=== PATIENT | male | born 1955 | race African-American/Black ===

== ENCOUNTER → 2018-04-02 13:23 | Outpatient (CLI) | payer OTHER, SELFPAY ==
[2018-04-02 16:00] LABS: PSA,Total - Annual Screen 2.53 ng/mL (0.00-4.00)
== END ==
PROVIDERS: Family Provider Family Medicine; PCP Family Medicine; Visit Provider Family Medicine
DX: Z12.5 Encounter for screening for malignant neoplasm of prostate (principal)
CPT/HCPCS: 36415; 84153; G0103

== ENCOUNTER 2018-08-15 18:43 | Emergency (ER) | payer OTHER, SELFPAY ==
[2018-08-15 18:44] VITALS: BP 132/81; PULSE 125; RESP 16; TEMP 36.6; O2SAT 97; BMI 32.8
[2018-08-15 19:47] LABS: Bacteria 0 SEEN /hpf (None Seen); Mucous, Urine 0 SEEN /hpf (<or=2+); Squamous Epithelial Cells - UA 0 SEEN /hpf (0-5); White Blood Cells 0 SEEN /hpf (0-5)
[2018-08-15 19:49] LABS: Color, Urine Yellow (Yellow); Glucose, Dipstick Normal (Normal); Ketone-Dipstick 5 mg/dl (Negative); Leukocyte Esterase-Dipstick 25 /ul (Negative); Nitrite-Dipstick Negative (Negative); Occult Blood-Urine 150 /ul (Negative); Protein-Dipstick Negative (Negative); Urine Bilirubin Dipstick Negative (Negative); Urine Clarity Clear (Clear); Urine Urobilinogen Normal (Normal)
[2018-08-15 19:57] LABS: Red Blood Cells-Urine 0-5 SEEN /hpf (0-5)
--- NOTE | 2018-08-15 20:30 | ED.VISSUMM ---
- ER Visit Summary Date of Service: 08/15/18 Chief Complaint: Urinary retention History of Present Illness: The patient is a 63 M who presents with urinary retention symptoms he has been on and off for a few days got worse today has quite a bit of suprapubic pain. No fever chills. No known BPH symptoms no prior events. Physical Examination: Otherwise normal exam she he has some suprapubic pain, slightly distended bladder. Normal external genitalia. Emergency Department Course and Treatment: A Lucas catheter was inserted, patient had significant relief. Urinalysis is unremarkable he had seen in urgent care earlier and was placed on antibiotics I told him to finish them. Discharge stable condition Impression: Urinary retention This note was generated with [employer] dictation software. It may contain incorrect words, spelling, and punctuation that were not noted in review of the chart prior to signing ED Disposition - Plan for ED Patient: Disposition: Home or Assisted Living Instructions: ED Catheter Care Lucas, ED Retention Urinary Male Prescriptions: Finasteride 5 mg PO DAILY #15 tab Referrals: Jalen Garcia MD [STAFF PHYSICIAN] - 3-5 Days
--- NOTE | 2018-08-15 20:34 | ED.DCSUM_ITS ---
- ER Visit Summary Date of Service: 08/15/18 Chief Complaint: Urinary retention History of Present Illness: The patient is a 63 M who presents with urinary retention symptoms he has been on and off for a few days got worse today has quite a bit of suprapubic pain. No fever chills. No known BPH symptoms no prior events. Physical Examination: Otherwise normal exam she he has some suprapubic pain, slightly distended bladder. Normal external genitalia. Emergency Department Course and Treatment: A Lucas catheter was inserted, patient had significant relief. Urinalysis is unremarkable he had seen in urgent care earlier and was placed on antibiotics I told him to finish them. Discharge stable condition Impression: Urinary retention This note was generated with [employer] dictation software. It may contain incorrect words, spelling, and punctuation that were not noted in review of the chart prior to signing ED Disposition - Plan for ED Patient: Disposition: Home or Assisted Living Instructions: ED Catheter Care Lucas, ED Retention Urinary Male Prescriptions: Finasteride 5 mg PO DAILY #15 tab Referrals: Jalen Garcia MD [STAFF PHYSICIAN] - 3-5 Days
== END 2018-08-15 20:58 | disposition home or self-care (01) ==
PROVIDERS: Emergency Provider Emergency Medicine; Family Provider Family Medicine; PCP Family Medicine
DX: R33.9 Retention of urine, unspecified (principal)
CPT/HCPCS: 51702; 81001; 99283

== ENCOUNTER → 2019-04-03 10:07 | Outpatient (CLI) | payer OTHER, SELFPAY ==
[2019-04-03 13:09] LABS: PSA,Total - Annual Screen 3.29 ng/mL (0.00-4.00)
== END ==
PROVIDERS: Family Provider Family Medicine; PCP Family Medicine; Visit Provider Family Medicine
DX: Z12.5 Encounter for screening for malignant neoplasm of prostate (principal)
CPT/HCPCS: 36415; 84153; G0103

== ENCOUNTER → 2020-06-21 09:12 | Outpatient (CLI) | payer SELFPAY ==
[2020-06-21 10:36] LABS: PSA,Total - Annual Screen 4.17 ng/mL (0.00-4.00)
== END ==
PROVIDERS: PCP Family Medicine; Referring Provider Family Medicine; Visit Provider Family Medicine
DX: Z12.5 Encounter for screening for malignant neoplasm of prostate (principal)
CPT/HCPCS: 36415; 84153; G0103

== ENCOUNTER → 2022-07-02 | Outpatient (CLI) | payer MEDICARE, SELFPAY ==
[2022-07-02 18:28] LABS: ALB/GLOB Ratio 0.9 RATIO (0.9-2.4); AST(SGOT) 24 U/L (15-37); Alanine Aminotransfer ALT/SGPT 24 U/L (16-61); Albumin, Serum 3.7 g/dL (3.2-5.0); Alkaline Phosphatase 50 U/L (45-117); Anion Gap 3 (5-15); BUN 13 mg/dL (7-18); BUN/Creat Ratio 11.6 RATIO (10-20); Calcium,Total 9.2 mg/dL (8.5-10.1); Chloride 106 mmol/L (98-107); Cholesterol 193 mg/dL (200); Creatinine, Serum 1.12 mg/dL (0.70-1.30); EST Glomerular Filtration Rate 70 mL/min (>60); Est Glom Filt Rate - Afr Amer 84 mL/min (>60); Globulin 3.9 g/dL (2.2-4.2); Glucose 75 mg/dL (74-106); High Density Lipoprotein 49 mg/dL; Potassium 4.2 mmol/L (3.5-5.1); Protein, Total 7.6 g/dL (6.4-8.2); Sodium Level 138 mmol/L (136-145); Triglycerides 86 mg/dL; Very Low Density Lipoprotein 17 mg/dL (5-40)
== END | disposition home or self-care (01) ==
LOC: MFPLAB 15:48
PROVIDERS: PCP Family Medicine; Visit Provider Family Medicine
DX: Z00.00 Encounter for general adult medical examination without abnormal findings (principal); E78.1 Pure hyperglyceridemia; Z12.5 Encounter for screening for malignant neoplasm of prostate
CPT/HCPCS: 36415; 80053; 80061; 84153; G0103

== ENCOUNTER → 2023-07-08 | Outpatient (CLI) | payer MEDICARE, SELFPAY ==
[2023-07-08 11:03] LABS: PSA,Total- Diagnostic 4.84 ng/mL (0.0-4.0)
== END | disposition home or self-care (01) ==
LOC: MFPLAB 09:03
PROVIDERS: PCP Family Medicine; Visit Provider Family Medicine
DX: R97.20 Elevated prostate specific antigen [PSA] (principal)
CPT/HCPCS: 36415; 84153

== ENCOUNTER → 2023-07-23 | Outpatient (CLI) | payer MEDICARE, SELFPAY ==
[2023-07-23 19:06] LABS: AST(SGOT) 19 U/L (15-37); Alanine Aminotransfer ALT/SGPT 23 U/L (16-61); Albumin, Serum 3.8 g/dL (3.2-5.0); Alkaline Phosphatase 55 U/L (45-117); Anion Gap 7 (5-15); BUN 15 mg/dL (7-18); BUN/Creat Ratio 11.4 RATIO (10-20); Calcium,Total 9.4 mg/dL (8.5-10.1); Chloride 106 mmol/L (98-107); Cholesterol 182 mg/dL (200); Creatinine, Serum 1.32 mg/dL (0.70-1.30); EST Glomerular Filtration Rate 58 mL/min (>60); Est Glom Filt Rate - Afr Amer 70 mL/min (>60); Globulin 3.8 g/dL (2.2-4.2); Glucose 82 mg/dL (74-106); High Density Lipoprotein 48 mg/dL; Protein, Total 7.6 g/dL (6.4-8.2); Sodium Level 141 mmol/L (136-145); Triglycerides 153 mg/dL; Very Low Density Lipoprotein 31 mg/dL (5-40)
[2023-07-25 13:08] LABS: PSA, Free 0.59 ng/mL; PSA, Free % 14.1 % (.)
== END | disposition home or self-care (01) ==
LOC: MFPLAB 14:59
PROVIDERS: PCP Family Medicine; Visit Provider Family Medicine
DX: R97.20 Elevated prostate specific antigen [PSA] (principal); E78.1 Pure hyperglyceridemia
CPT/HCPCS: 36415; 80053; 80061; 84153; 84154

== ENCOUNTER → 2024-02-28 | Outpatient (CLI) | payer MEDICARE, SELFPAY ==
[2024-03-02 12:08] LABS: PSA, Free 0.64 ng/mL; PSA, Free % 13.7 % (.)
== END | disposition home or self-care (01) ==
LOC: MFPLAB 12:30
PROVIDERS: PCP Urology; Referring Provider Urology; Visit Provider Urology
DX: R97.20 Elevated prostate specific antigen [PSA] (principal)
CPT/HCPCS: 36415; 84153; 84154

== ENCOUNTER → 2024-04-21 | Outpatient (CLI) | payer MEDICARE, SELFPAY ==
--- NOTE | 2024-04-21 13:00 | PROSBIL_PTH ---
PATIENT: JULIENNE CORNELL LOC: [facility] U#:[id number] AGE/SX: 68/M ROOM: RE04/21/[address]: Dr. Jalen Garcia MD : [id number] BED: DIS: 04/21/2024 SPEC #: [id number] RECD: 04/22/24 08:46 STATUS: HUNAG ALEXA #: [id number] FRANK: 04/21/24 13:[address]: Jalen Garcia DEPT: SURGICAL PATHOLOGY RECD BY: Sharyn Pal Tissues: A - PROSTATE RIGHT B - PROSTATE RIGHT C - PROSTATE RIGHT D - PROSTATE LEFT E - PROSTATE LEFT F - PROSTATE LEFT Procedures: PROSTATE BX HEADER OPERATION: Prostate biopsy PRE-OP DIAGNOSIS: Elevated PSA TISSUE SUBMITTED: A - Right apex, B - Right mid, C - Right base, D - Left apex, E - Left mid, F - Left base MICROSCOPIC DIAGNOSIS A. Right prostate, apex, core biopsy: Focal high-grade prostatic intraepithelial neoplasia (HGPIN). Chronic inflammation. B. Right prostate, mid, core biopsy: Prostatic adenocarcinoma. Sadaf grade: 3+3=6 Number of cores involved: 1/2 Proportion of tissue involved: ~15 % Perineural invasion: Not identified. Greatest tumor length: 0.3 cm C. Right prostate, base, core biopsy: Prostatic tissue, negative for malignancy. D. Left prostate, apex, core biopsy: Prostatic tissue, negative for malignancy. E. Left prostate, mid, core biopsy: Focal high-grade prostatic intraepithelial neoplasia (HGPIN). F. Left prostate, base, core biopsy: Focal high-grade prostatic intraepithelial neoplasia (HGPIN). 04/23/2024 MICROSCOPIC DESCRIPTION Slides are reviewed. GROSS DESCRIPTION A - Received is one container designated prostate, right apex. The specimen consists of one elongated fragments of light posadas-white soft tissue measuring 1.5 cm in length and 0.1 cm in diameter. The specimen is totally submitted in one cassette. B - Received is one container designated prostate, right mid. The specimen consists of two elongated fragments of light posadas-white soft tissue each measuring 1.4 cm in length and 0.1 cm in diameter. The specimen is totally submitted in one cassette. C - Received is one container designated prostate, right base. The specimen consists of one elongated fragments of light posadas-white soft tissue measuring 1 cm in length and 0.1 cm in diameter. The specimen is totally submitted in one cassette. D - Received is one container designated prostate, left apex. The specimen consists of one elongated fragments of light posadas-white soft tissue measuring 1.5 cm in length and 0.1 cm in diameter. The specimen is totally submitted in one cassette. E - Received is one container designated prostate, left mid. The specimen consists of two elongated fragments of light posadas-white soft tissue measuring 1.5 and 1.8 cm in length and 0.1 cm in diameter. The specimen is totally submitted in one cassette. F - Received is one container designated prostate, left base. The specimen consists of one elongated fragments of light posadas-white soft tissue measuring 1.3 cm in length and 0.1 cm in diameter. The specimen is totally submitted in one cassette. / SJ.mr 04/22/2024 TC:0 CPT: G0146
== END | disposition home or self-care (01) ==
LOC: LABSPEC 14:54
PROVIDERS: PCP Urology; Referring Provider Urology; Visit Provider Urology
DX: C61 Malignant neoplasm of prostate (principal)
CPT/HCPCS: 88305; G0416

== ENCOUNTER → 2024-10-29 | Outpatient (CLI) | payer MEDICARE, OTHER, SELFPAY ==
[2024-10-29 16:26] LABS: PSA,Total- Diagnostic 5.30 ng/mL (0.00-4.00)
== END | disposition home or self-care (01) ==
LOC: MTLAB 13:25
PROVIDERS: PCP Urology; Referring Provider Urology; Visit Provider Urology
DX: C61 Malignant neoplasm of prostate (principal)
CPT/HCPCS: 36415; 84153